=== PATIENT | female | born 1990 | race Caucasian/White ===

== ENCOUNTER 2018-07-20 09:37 | Outpatient (CLI) | END 2018-07-20 12:04 | disposition home or self-care (01) ==

== ENCOUNTER 2018-07-26 19:33 | Outpatient (CLI) | END 2018-07-26 21:40 | disposition home or self-care (01) ==

== ENCOUNTER 2018-07-29 11:50 | Outpatient (CLI) | END 2018-07-29 14:45 | disposition home or self-care (01) ==

== ENCOUNTER 2018-07-31 07:22 | Inpatient (IN) | END 2018-08-03 12:25 | disposition home or self-care (01) | DRG 788 ==